=== PATIENT | female | born 1995 | race Caucasian/White ===

== ENCOUNTER 2017-11-08 15:54 | Emergency (ER) | payer SELFPAY ==
[~2017-11-08] VITALS: Ht 162.6 cm; Wt 113.4 kg
[~2017-11-08 15:54] MED LIST: NAPR-243 PO; ONDA4TAB11 PO; bcp
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
[2017-11-08] MEDS ORDERED: fentaNYL INJECTION 100 MCG/2 ML AMP IVP ONE (16:15)
[2017-11-08 16:16] LABS: BASOPHILS # (AUTO) 0.1 10^3/uL (0.0-0.1); BASOPHILS % (AUTO) 1 % (0-10); EOSINOPHILS # (AUTO) 0.4 10^3/uL (0.0-0.3); EOSINOPHILS % (AUTO) 3 % (0-10); LYMPHOCYTES # (AUTO) 5.1 X 10^3 (1.0-4.0); LYMPHOCYTES % (AUTO) 42 % (12-44); MEAN CORPUSCULAR HEMOGLOBIN 28 PG (25-34); MEAN CORPUSCULAR HGB CONC 33 G/DL (32-36); MEAN CORPUSCULAR VOLUME 86 FL (80-99); MEAN PLATELET VOLUME 10.6 FL (7.4-10.4); MONOCYTES # (AUTO) 1.1 X 10^3 (0.0-1.0); MONOCYTES % (AUTO) 9 % (0-12); NEUTROPHILS # (AUTO) 5.3 X 10^3 (1.8-7.8); NEUTROPHILS % (AUTO) 44 % (42-75); PLATELET COUNT 346 10^3/uL (130-400); RED BLOOD COUNT 4.89 10^6/uL (4.35-5.85); RED CELL DISTRIBUTION WIDTH 13.3 % (10.0-14.5)
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
[2017-11-08] MEDS ORDERED: HYDR-757 PO (17:07)
[2017-11-08 17:55] VITALS: BP 149/107
== END 2017-11-08 17:55 | disposition home or self-care (01) ==
LOC: EDUNIT# 15:54 → ER 15:55
DX: S52.232A Displaced oblique fracture of shaft of left ulna, initial encounter for closed fracture (principal); J45.909 Unspecified asthma, uncomplicated; Z90.89 Acquired absence of other organs; V40.7XXA Person on outside of car injured in collision with pedestrian or animal in traffic accident, initial encounter
CPT/HCPCS: 29105; 36415; 70450; 71010; 72125; 73090; 73552; 84703; 85025; 96374

== ENCOUNTER → 2017-12-29 | Outpatient (CLI) | payer SELFPAY ==
[~2017-12-29] MED LIST changes: +GADOBUTROL 15 MMOL/15 ML (GADAVIST) VIAL IV ONE; +HYDR-757 PO
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
== END ==
LOC: RAD 11:51
PROVIDERS: ATTEND Nurse Practitioner Community Health
DX: S09.90XD Unspecified injury of head, subsequent encounter (principal); R41.3 Other amnesia; V89.2XXD Person injured in unspecified motor-vehicle accident, traffic, subsequent encounter
CPT/HCPCS: 70553